=== PATIENT | female | born 1960 | race Caucasian/White ===

== ENCOUNTER 2022-02-20 08:45 | Outpatient (CLI) | payer BC, SELFPAY ==
--- NOTE | 2022-02-20 09:02 | US_ITS ---
WS: [id number] RIGHT UPPER QUADRANT ULTRASOUND HISTORY: ELEVATED LIVER ENZYMES COMPARISON: None available. Liver: 17.4 cm in length. Liver is top normal size to slightly enlarged. Mild central bile duct dilat ation. Common bile duct is markedly dilated to the pancreatic head. Hepatic cyst along the diaphragma tic surface measures 1.4 x 1.5 x 0.7 cm. Portal Vein: Normal hepatopetal flow with monophasic waveform. Gallbladder: Gallbladder hydrops. Sludge layering in the gallbladder. The gallbladder wall is not thi ckened. No stones or pericholecystic fluid. CBD: 1.7 cm Pancreas: Common bile duct is dilated through the pancreatic head. Pancreas otherwise appears normal caliber. Right kidney: 9.8 cm in length. Normal size and echogenicity. No hydronephrosis or mass. Aorta and IVC: Unremarkable abdominal aorta and IVC. No ascites. US/US abdomen limited [id number] IMPRESSION: 1. Moderate intrahepatic biliary duct dilatation and common duct dilatation. C ommon bile duct is dilated through the pancreatic head, 1.7 cm. No obstructing stone or pancreatic mass identified. 2. Gallbladder hydrops. No wall thickening or pericholecystic fluid. There is sludge within the gallbladder lumen. 3. Recommend further evaluation to exclude distal common bile duct stone or ma ss. CT evaluation with IV contrast recommended. No oral contrast. MRCP may be n ecessary.
== END 2022-02-20 08:46 | disposition home or self-care (01) ==
LOC: RAD 08:49
PROVIDERS: Visit Provider Nurse Practitioner
DX: R74.8 Abnormal levels of other serum enzymes (principal); R60.9 Edema, unspecified
CPT/HCPCS: 76705

== ENCOUNTER 2022-02-20 10:26 | Inpatient (IN) | payer BC, SELFPAY ==
[2022-02-20] VITALS (12 sets, daily range): BP systolic 104–157; BP diastolic 80–97; PULSE 79–94; RESP 16–18; TEMP 37.4; O2SAT 95–97; BMI 25.7
--- NOTE | 2022-02-20 12:08 | ED_ITS ---
Documented by User: Jose Knapp DO 02/24/22 07:58 HPI - General Adult General: Chief complaint: General Medical Stated complaint: sent to ER per Taylor Begum/Jaundice Time Seen by Provider: 02/20/22 11:43 Source: patient Mode of arrival: ambulatory Limitations: no limitations History of Present Illness: Onset (ago): minute(s) PFSH ED PFSH: Medical History No significant past medical history Surgical History S/P tonsillectomy Family History Other Cancer Social History Smoking and tobacco status: current every day smoker cigarettes Packs smoked per day: 0.5 Years cigarettes smoked: 30 Alcohol intake: never Substance/Drug Use: never Caregiver/support person: Yes Lives independently: Yes Household members: spouse Housing: House Marital status: Physical Exam Neuro: TYLER COMA SCALE: document GCS findings [place] coma scale total score: 15 Course Vital Signs: Vital signs: Vital Signs Temperature 98.2 F 02/23/22 17:14 Pulse Rate 56 L 02/23/22 17:14 Respiratory Rate 13 02/23/22 17:14 Blood Pressure 137/65 02/23/22 17:14 Pulse Oximetry 93 02/23/22 17:14 MDM - General Adult Medical Decision Making 61-year-old female originally seen by Dr. Knapp and checked out to me. This lady has painless jaundice. Her platelet count is normal. White blood cell co unt is normal as well. Her hemoglobin is 15. Total bilirubin is 7.4 with direct of 5.7. CT and MRCP show an ill-defined pancreatic mass, causing biliary outlet obstruction. Likely the cause of her hyperbilirubinemia. No availability for ERCP or stent here at this facility. I have spoken with GI services [facility], and they have agreed to see the patient. Awaiting hospitalist serv ice as well. She may not have a bed tonight, and may therefore have to wait till tomorrow. Reassumed care from Dr. Zavala. We are still awaiting placement at [place] she has been accepted to have no room available they are not sure when they will have a room available may be in a couple more days discussed the hospitalist will admit to observation here with the plan to transfer as soon as room becomes available. Orders written Dr. Watkins will see the patient Lab Data : 02/22/22 04:10 02/23/22 02:50 Radiology Impressions Abdomen/Pelvis CT 02/20/22 16:15 IMPRESSION: 1. Marked dilatation of intrahepatic/extrahepatic bile duct and main pancreatic duct consistent with double duct sign with suspected obstruction at the level of the pancreatic head/uncinate process due to an ill-defined pancreatic neoplasm as described above. Surgical/GI consultation should be considered. Additional imaging such as contrast-enhanced MRI/MRCP or ERCP/EUS should be considered. 2. No hepatic cirrhosis. Multiple small hypodense hepatic lesions are noted demonstrating probable cystic characteristics. 3. No enlarged regional adenopathy or obvious vascular occlusion/thrombosis. ADDENDUM: 02/20/22 [id number] Impression: 4. Esophageal abnormalities as described. Cholangiopancreatography MRI 02/20/22 16:17 IMPRESSION: 1. Comparison CT same day earlier. The current MRI exam was somewhat limited for pancreatic and hepatic parenchymal enhancement due to lack of contrast. 2. Redemonstration of severe intrahepatic/extrahepatic bile duct dilatation and main pancreatic duct dilatation with obstruction at the level pancreatic head, likely due to an ill-defined mass seen on recent CT exam. The mass is difficult to outline on the current exam due to lack of IV contrast. No intraductal calculi, ductal stricture or ductal wall thickening. 3. No hepatic cirrhosis. Several T2 hyperintense hepatic lesions are probably cystic. 4. Abnormal esophagus as described above. Laboratory Results WBC 7.7 10^3/uL (4.0-10.0) 02/21/22 16:35 RBC 4.82 10^6/uL (4.1-5.3) 02/21/22 16:35 Hgb 13.2 g/dL (11.5-15.3) 02/21/22 16:35 Hct 40.0 % (37.0-47.0) 02/21/22 16:35 MCV 83.0 fl (81-99) 02/21/22 16:35 MCH 27.4 pg (28.0-34.0) L 02/21/22 16:35 MCHC 33.0 g/dL (30.0-36.0) 02/21/22 16:35 RDW 19.2 % (12.1-15.1) H 02/21/22 16:35 Plt Count 151 10^3/cmm (130-400) 02/21/22 16:35 MPV 11.4 fL (7.4-10.4) H 02/21/22 16:35 Neut % (Auto) 69.8 % 02/21/22 16:35 Lymph % (Auto) 17.0 % 02/21/22 16:35 [place] % (Auto) 9.4 % 02/21/22 16:35 Eos % (Auto) 2.6 % 02/21/22 16:35 Baso % (Auto) 0.9 % 02/21/22 16:35 Neut # (Auto) 5.38 10^3/uL (1.8-7.7) 02/21/22 16:35 Lymph # (Auto) 1.3 10^3/uL (0.8-4.8) 02/21/22 16:35 [place] # (Auto) 0.7 10^3/uL (0.2-0.9) 02/21/22 16:35 Eos # (Auto) 0.2 10^3/uL (0.0-0.8) 02/21/22 16:35 Baso # (Auto) 0.1 10^3/uL (0.0-0.1) 02/21/22 16:35 Nucleated RBC % (auto) 0 % 02/21/22 16:35 Nucleated RBCs # 0.0 /100WBC 02/21/22 16:35 PT 14.10 SECONDS (12.1-14.9) 02/21/22 16:35 INR 1.06 (0.8-1.2) 02/21/22 16:35 Sodium 134 mmol/L (136-145) L 02/21/22 16:35 Potassium 3.5 mmol/L (3.5-5.1) 02/21/22 16:35 Chloride 104 mmol/L (98-107) 02/21/22 16:35 Carbon Dioxide 23 mmol/L (22-29) 02/21/22 16:35 Anion Gap 10.5 (5-19) 02/21/22 16:35 BUN 6 mg/dL (8-23) L 02/21/22 16:35 Creatinine 0.4 mg/dL (0.5-0.9) L 02/21/22 16:35 GFR Calculation 161.7 mL/min (90-130) H 02/21/22 16:35 Glucose 104 mg/dL (65-115) 02/21/22 16:35 Calculated Osmolality 276 mOsm/kg (285-295) L 02/21/22 16:35 Calcium 8.8 mg/dL (8.5-10.5) 02/21/22 16:35 Iron 125 ug/dL (37-145) 02/21/22 16:35 TIBC 276 mcg/dl 02/21/22 16:35 % Saturation 45.2 % (20-50) 02/21/22 16:35 Unsat Iron Binding 151 ug/dL (112-347) 02/21/22 16:35 Total Bilirubin 7.3 mg/dL (0.15-1.2) H* 02/21/22 16:35 Direct Bilirubin 5.70 mg/dL (0.00-0.30) H 02/20/22 12:20 Indirect Bilirubin 1.70 02/20/22 12:20 GGT 474 U/L (5-36) H 02/20/22 12:20 AST 129 U/L (0-32) H 02/21/22 16:35 ALT 276 U/L (0-33) H 02/21/22 16:35 Alkaline Phosphatase 323 IU/L (35-105) H 02/21/22 16:35 Lactate Dehydrogenase 194 U/L (135-214) 02/20/22 12:20 Total Protein 5.9 g/dL (6.6-8.7) L 02/21/22 16:35 Albumin 3.3 g/dL (3.5-5.2) L 02/21/22 16:35 Globulin 2.6 g/dL (1.3-4.6) 02/21/22 16:35 Lipase 230 U/L (13-60) H 02/20/22 12:20 TSH 1.37 uIU/mL (0.27-4.20) 02/21/22 16:35 Urine Color Raya (Yellow) 02/20/22 12:20 Urine Appearance Clear (CLEAR) 02/20/22 12:20 Urine pH 5 (5-7) 02/20/22 12:20 Ur Specific [place] 1.025 (1.005-1.030) 02/20/22 12:20 Urine Protein 1+ (Negative) H 02/20/22 12:20 Urine Glucose (UA) Norm (Normal) 02/20/22 12:20 Urine Ketones 1+ (Negative) H 02/20/22 12:20 Urine Blood 3+ (Negative) H 02/20/22 12:20 Urine Nitrate Positive (Negative) H 02/20/22 12:20 Urine Bilirubin 3+ (Negative) H 02/20/22 12:20 Urine Urobilinogen 8 mg/dL (Negative) H 02/20/22 12:20 Ur Leukocyte Esterase 1+ (Negative) H 02/20/22 12:20 Urine RBC 0-4 /hpf (0-2) H 02/20/22 12:20 Urine WBC 5-10 /hpf (0-5) H 02/20/22 12:20 Ur Squamous Epith Cells 0-4 /hpf (0-5) H 02/20/22 12:20 Calcium Oxalate Crystal 0-4 /hpf H 02/20/22 12:20 Amorphous Sediment 1+ /hpf 02/20/22 12:20 Urine Bacteria Trace /hpf (NONE) 02/20/22 12:20 Urine Mucus 3+ /hpf 02/20/22 12:20 Hepatitis A IgM Ab TNP 02/20/22 16:31 Hep Bs Antigen Non-reactive (Nonreactive) 02/20/22 16:31 Hep B Core IgM Ab Non-reactive (Nonreactive) 02/20/22 16:31 Hepatitis C Antibody Non-reactive (Nonreactive) 02/20/22 16:31 Discharge Plan Discharge Patient Disposition: Xfer Short-Term Hosp Clinical Impression: Mass of pancreas, Biliary obstruction Condition: Stable Discharge Orders: Discharge Order (Routine); Ordered 02/23/22 Ordered By: Jose Guallpa Discharge Diet: Regular Discharge Activity: Resume usual activity Coding Level of Care Code ED Accident Examiner for Chg Fwd Exam Comprehensive Documented by User: Chong Zavala DO 02/21/22 19:57 HPI - General Adult General: Chief complaint: General Medical Stated complaint: sent to ER per Taylor Begum/Jaundice Time Seen by Provider: 02/20/22 11:43 History of Present Illness: 61-year-old female presenting to the emergency department for jaundice. This is a painless jaundice that the patient had developed. She saw her primary care physician, labs were obtained, and an outpatient ultrasound. She was sent to the emergency room by her PCP. She continues to complain of no pain. She denies fever. She states she has had intermittent nausea. No known history of cirrhosis or liver disease. She has not had a cholecystectomy. Location: abdomen Quality: other Pain Consistency: other Relieving factors: none Exacerbating factors: none Associated symptoms: Reports malaise and nausea; Deny chest pain, confusion, cough, fevers/chills, headache(s), rash, short of breath or vomiting Review of Systems Const: Reports: malaise; Denies: fever(s) Eyes: Denies: change in vision ENMT: Denies: throat pain Card: Denies: chest pain GI: Reports: nausea; Denies: vomiting Skin/Breast: Denies: rash Neuro: Denies: headache(s) or confusion PFSH ED PFSH: Medical History No significant past medical history Surgical History S/P tonsillectomy Family History Other Cancer Social History Smoking and tobacco status: current every day smoker cigarettes Packs smoked per day: 0.5 Years cigarettes smoked: 30 Alcohol intake: never Substance/Drug Use: never Caregiver/support person: Yes Lives independently: Yes Household members: spouse Housing: House Marital status: Physical Exam Const: GENERAL APPEARANCE: cooperative and ill appearing (mildly) HENMT: COMMON NORMALS: normocephalic and Normal external nose present HEAD & SCALP: normocephalic FACE & SINUS: normal facial exam; no ecchymosis NOSE: Normal external nose present THROAT: posterior oropharynx normal Eye: COMMON NORMALS: Equal, round and reactive pupils present and EOMs intact bilaterally PUPIL: Yes Equal, round and reactive pupils present Neck/C-Spine: GENERAL: Yes trachea midline Chest: COMMONS NORMALS: normal inspection of the chest Resp: COMMON NORMALS: normal respiratory effort and No use of accessory muscles Cardio: COMMON NORMALS: regular rate and regular rhythm RATE: regular rate RHYTHM: regular rhythm GI: COMMON NORMALS: Normal to inspection, nondistended, normoactive bowel sounds present Neuro: TYLER COMA SCALE: document GCS findings [place] coma scale eye opening: Spontaneous [place] coma scale verbal response: Orientated [place] coma scale motor response: Obey commands [place] coma scale total score: 15 Psych: COMMON NORMALS: cooperative Skin: GENERAL SKIN EXAM: jaundice Course Consultations: Consultation #1: KRUNAL huff GI Consultation #2: DARIUS Abreu hospitalist. Vital Signs: Vital signs: Vital Signs Temperature 98.2 F 02/23/22 17:14 Pulse Rate 56 L 02/23/22 17:14 Respiratory Rate 13 02/23/22 17:14 Blood Pressure 137/65 02/23/22 17:14 Pulse Oximetry 93 02/23/22 17:14 [facility] - General Adult Medical Decision Making 61-year-old female originally seen by Dr. Knapp and checked out to me. This lady has painless jaundice. Her platelet count is normal. White blood cell count is normal as well. Her hemoglobin is 15. Total bilirubin is 7.4 with direct of 5.7. CT and MRCP show an ill-defined pancreatic mass, causing biliary outlet obstruction. Likely the cause of her hyperbilirubinemia. No availability for ERCP or stent here at this facility. I have spoken with GI services [facility], and they have agreed to see the patient. Awaiting hospitalist service as well. She may not have a bed tonight, and may therefore have to wait till tomorrow. Lab Data : 02/22/22 04:10 02/23/22 02:50 Radiology Impressions Abdomen/Pelvis CT 02/20/22 16:15 IMPRESSION: 1. Marked dilatation of intrahepatic/extrahepatic bile duct and main pancreatic duct consistent with double duct sign with suspected obstruction at the level of the pancreatic head/uncinate process due to an ill-defined pancreatic neoplasm as described above. Surgical/GI consultation should be considered. Additional imaging such as contrast-enhanced MRI/MRCP or ERCP/EUS should be considered. 2. No hepatic cirrhosis. Multiple small hypodense hepatic lesions are noted demonstrating probable cystic characteristics. 3. No enlarged regional adenopathy or obvious vascular occlusion/thrombosis. ADDENDUM: 02/20/22 [id number] Impression: 4. Esophageal abnormalities as described. Cholangiopancreatography MRI 02/20/22 16:17
[2022-02-20 12:34] LABS: Basophils # 0.1 10^3/uL (0.0-0.1); Basophils % 0.8 %; Eosinophils # 0.1 10^3/uL (0.0-0.8); Eosinophils % 1.2 %; Hematocrit 45.3 % (37.0-47.0); Lymphocytes # 1.2 10^3/uL (0.8-4.8); Lymphocytes % 12.8 %; Mean Corpuscular HGB Conc 33.1 g/dL (30.0-36.0); Mean Corpuscular Hemoglobin 26.8 pg (28.0-34.0); Mean Corpuscular Volume 80.9 fl (81-99); Mean Platelet Volume 11.9 fL (7.4-10.4); Monocytes # 0.8 10^3/uL (0.2-0.9); Monocytes % 8.4 %; Neutrophils # 7.19 10^3/uL (1.8-7.7); Neutrophils % 76.4 %; Nucleated Red Blood Cells % 0 %; Platelet Count 187 10^3/cmm (130-400); Red Cell Distribution Width 18.6 % (12.1-15.1); White Blood Count 9.4 10^3/uL (4.0-10.0)
[2022-02-20 12:53] LABS: Add Urine Culture? No; Add Urine Microscopic? YES; Amorphous Sediment Urine 1+ /hpf; Bacteria Urine TRACE /hpf; Bilirubin Urine 3+ (Negative); Blood Urine 3+ (Negative); Calcium Oxalate Crystals Urine 0-4 /hpf; Glucose Urine UA Norm (Normal); Ketones Urine 1+ (Negative); Leukocyte Esterase Urine 1+ (Negative); Mucus Urine 3+ /hpf; Nitrate Urine Positive (Negative); Protein Urine 1+ (Negative); RBC Urine 0-4 /hpf (0-2); Specific Gravity, Urine 1.025 (1.005-1.030); Squamous Epithelial Cell Urine 0-4 /hpf (0-5); Urine Appearance Clear (CLEAR); Urine Color Amber (Yellow); Urobilinogen Urine 8 mg/dL (Negative); pH Urine 5 (5-7)
[2022-02-20 12:54] LABS: Slide Review Slide Review Perform
[2022-02-20 13:03] LABS: Alanine Aminotransferase 347 U/L (0-33); Albumin Level 4.1 g/dL (3.5-5.2); Alkaline Phosphatase 386 IU/L (35-105); Aspartate Amino Transferase 157 U/L (0-32); Blood Urea Nitrogen 6 mg/dL (8-23); Calcium 9.7 mg/dL (8.5-10.5); Carbon Dioxide 23 mmol/L (22-29); Chloride 102 mmol/L (98-107); Globulin 3.2 g/dL (1.3-4.6); Glomerular Filtration Rate 161.7 mL/min (90-130); Glucose 102 mg/dL (65-115); Lipase 230 U/L (13-60); Osmolality Calculated 286 mOsm/kg (285-295); Sodium 139 mmol/L (136-145); Total Protein 7.3 g/dL (6.6-8.7)
[2022-02-20 13:05] LABS: Gamma Glutamyl Transferase 474 U/L (5-36)
[2022-02-20 13:09] LABS: Total Bilirubin 7.3 mg/dL (0.15-1.2)
[2022-02-20 13:11] LABS: Anion Gap 17.4 (5-19); Lactate Dehydrogenase 194 U/L (135-214); Potassium 3.4 mmol/L (3.5-5.1)
[2022-02-20 13:15] LABS: Total Bilirubin 7.4 mg/dL (0.15-1.2)
[2022-02-20 13:20] LABS: INR 0.97 (0.8-1.2)
--- NOTE | 2022-02-20 16:15 | CTR_ITS ---
PROCEDURE INFORMATION: Exam: CT Abdomen And Pelvis With Contrast Exam date and time: 02/20/2022 5:06 PM Age: 61 years old Clinical indication: Nausea; Additional info: Elevated lfts/hyperbilirubunemia TECHNIQUE: Imaging protocol: Computed tomography of the abdomen and pelvis with contrast. Radiation optimization: All CT scans at this facility use at least one of these dose optimization techniques: automated exposure control; mA and/or kV adjustment per patient size (includes targeted exams where dose is matched to clinical indication); or iterative reconstruction. Contrast material: OMNIPAQUE 300; Contrast volume: 95 ml; Contrast route: INTRAVENOUS (IV); COMPARISON: US abdomen limited [id number] 02/20/2022 9:27 AM RADIATION DOSE METRICS: Total DLP (mGy-cm): 972.3 FINDINGS: Mediastinal space: [id number] esophageal fluid distension, likely related to gastroesophageal reflux. There is also mild esophageal wall thickening suggesting esophagitis. Liver: The liver is otherwise normal in size without cirrhosis. There are multiple small discrete hypodense well-defined lesions, the largest in the inferolateral right hepatic lobe, measuring 14 mm which may represent hepatic cysts however metastatic disease cannot be totally excluded in this setting. Gallbladder and bile ducts: There is diffuse severe intrahepatic and extrahepatic bile duct dilatation with proximal CBD measuring up to 2.6 cm with an abrupt cutoff distally suggesting distal CBD obstruction. There is also marked diffuse main pancreatic duct dilatation measuring up to 14 mm with probable side branch dilatation. There is slight fullness of the pancreatic head/uncinate process with mildly hypodense region measuring about 16 x 15 mm transverse and 18 mm coronal, coronal image 34 and axial image 24 which appears ill-defined during portal venous phase and is somewhat suspicious for obstructive neoplasm. There is distended gallbladder lumen. No imaging signs of acute cholecystitis. There is probable low cystic duct insertion. Pancreas: See Gallbladder and bile ducts finding. Spleen: Normal. No splenomegaly. Adrenal glands: Normal. No mass. Kidneys and ureters: No obstructing calculus. No hydronephrosis. Stomach and bowel: Unremarkable. No obstruction. No mucosal thickening. Appendix: No evidence of appendicitis. Intraperitoneal space: Unremarkable. No free air. No significant fluid collection. Arteries: There is no evidence of regional arterial or venous vascular encasement, thrombosis or obstruction. Lymph nodes: No enlarged lymph nodes. Urinary bladder: Unremarkable as visualized. Reproductive: Unremarkable as visualized. Bones/joints: No acute fracture. Soft tissues: No acute findings. CT/CT abdomen pelvis w con* [id number] IMPRESSION: 1. Marked dilatation of intrahepatic/extrahepatic bile duct and main pancreatic duct consistent with double duct sign with suspected obstruction at the level of the pancreatic head/uncinate process due to an ill-defined pancreatic neoplasm as described above. Surgical/GI consultation should be considered. Additional imaging such as contrast-enhanced MRI/MRCP or ERCP/EUS should be considered. 2. No hepatic cirrhosis. Multiple small hypodense hepatic lesions are noted demonstrating probable cystic characteristics. 3. No enlarged regional adenopathy or obvious vascular occlusion/thrombosis.
--- NOTE | 2022-02-20 16:17 | MRR_ITS ---
PROCEDURE INFORMATION: Exam: MR Abdomen Without Contrast Exam date and time: 02/20/2022 5:48 PM Age: 61 years old Clinical indication: Nausea and vomiting; Additional info: Hyperbilirubinemia, jaundice TECHNIQUE: Imaging protocol: MR of the abdomen without contrast. COMPARISON: CT abdomen pelvis w con* [id number] 02/20/2022 5:06 PM FINDINGS: Mediastinal space: Incidentally noted is fluid-filled dilated distal esophagus. There is probable mild distal esophageal wall thickening which may represent reflux with esophagitis. Liver: Somewhat elongated right hepatic lobe with no significant overall hepatomegaly or cirrhosis. No evidence of hepatic steatosis by chemical shift criteria. Several small T2 hyperintense hepatic lesions are noted, likely hepatic cysts, unchanged versus CT same day, the largest measuring about 13 mm in the right lobe. Gallbladder and bile ducts: Distended gallbladder likely related to obstruction. No obvious gallbladder wall thickening or large gallbladder calculi. No regional edema or inflammatory response. Again seen is marked dilatation of intrahepatic and extrahepatic bile duct and main pancreatic duct as noted on recent CT exam. The proximal CBD measures up to 2.5 cm. No intraductal calculi or obvious ductal wall thickening. No intrahepatic biliary stricture. There is an abrupt cutoff/obstruction at the distal CBD at the lower pancreatic head. Pancreas: Diffuse main pancreatic duct dilatation measuring up to 12-14 mm is again noted with multiple small cystic side branch dilatation. There is also an abrupt cutoff/obstruction at the level of the pancreatic head. Pancreatic parenchymal assessment on the current exam is somewhat limited due to lack of IV contrast however there is a probable ill-defined hypodense lesion on the contrast-enhanced CT exam. Spleen: Unremarkable. No splenomegaly. Adrenal glands: Unremarkable. No mass. Kidneys and ureters: Unremarkable. No solid mass. No hydronephrosis. Stomach and bowel: Visualized stomach and intestines are unremarkable. Intraperitoneal space: No free fluid. Arteries: No abdominal aortic aneurysm. Bones/joints: Unremarkable. Soft tissues: Unremarkable. MR/MR MRCP [id number] IMPRESSION: 1. Comparison CT same day earlier. The current MRI exam was somewhat limited for pancreatic and hepatic parenchymal enhancement due to lack of contrast. 2. Redemonstration of severe intrahepatic/extrahepatic bile duct dilatation and main pancreatic duct dilatation with obstruction at the level pancreatic head, likely due to an ill-defined mass seen on recent CT exam. The mass is difficult to outline on the current exam due to lack of IV contrast. No intraductal calculi, ductal stricture or ductal wall thickening. 3. No hepatic cirrhosis. Several T2 hyperintense hepatic lesions are probably cystic. 4. Abnormal esophagus as described above.
[2022-02-20] MEDS: iohexol 300 mg/mL 100 mL Btl IV (17:11)
[2022-02-20 20:58] LABS: Hepatitis B Core IgM Non-Reactive (Nonreactive); Hepatitis B Surface Antigen Non-Reactive (Nonreactive); Hepatitis C Virus Antibody Non-Reactive (Nonreactive)
[2022-02-20] MEDS: ondansetron 2 mg/ML SDV 2 mL 4 MG IVP (21:29)
[2022-02-20] MEDS: sodium chloride 0.9% 1,000 ML 100 ML IV (21:30)
[2022-02-21] VITALS (15 sets, daily range): BP systolic 93–159; BP diastolic 56–92; PULSE 55–79; RESP 12–18; TEMP 36.6–37.3; O2SAT 94–99
[2022-02-21] MEDS: sodium chloride 0.9% 1,000 ML 100 ML IV (10:06)
[2022-02-21] MEDS: ondansetron 2 mg/ML SDV 2 mL 4 MG IVP ×2 (12:33→17:28)
--- NOTE | 2022-02-21 16:12 | PM.HP ---
Providers/Chief Complaint Primary Care Provider: Taylor Begum NP Chief Complaint: sent to ER per Taylor Begum/Jaundice History of Present Illness Joanna Castañeda is a 61 year old female with no significant past medical history was sent in by her PCP for abdominal ultrasound for nausea, vomiting, light-colored stools, dark-colored urine for last 3 weeks getting worse. On the ultrasound she was found to have a mass so she was sent to the ER. In the ER patient had a CT abdomen pelvis along with an MRCP which was consistent with biliary obstruction secondary to pancreatic head mass. Since then patient has been accepted at [facility] but is awaiting a bed hence medical service was consulted for admit. Patient denies any active complaints currently. Complaining of nausea, yellowish discoloration of eyes and skin. Has lost weight gradually over a period of the ER. Has significant family history of lung cancer in mother. Patient is chronic smoker, not alcoholic. No blood work done today. Blood work available from 02/20. Review of Systems General: Reports: 10 or more systems reviewed and unremarkable except in HPI and below Const: Denies: fever(s), chills, body aches, change in appetite, change in weight, malaise, night sweats, diaphoresis, change in sleep pattern, daytime sleepiness or snoring Eyes: Denies: change in vision, blurry vision, photophobia, eye discomfort or eye discharge ENMT: Denies: throat pain, enlarged tonsils, hoarseness, mouth pain, oral sores, dry mouth, tinnitus, nasal congestion or post nasal drip Card: Denies: chest pain, palpitations, irregular heart rhythm, edema, swelling of feet/ankles, lightheadedness, syncope, pre-syncope, dyspnea on exertion, orthopnea, leg pain with exertion or acrocyanosis Resp: Denies: dyspnea, productive cough, non-productive cough, wheezing, stridor, pain on inspiration, change in phlegm color, hemoptysis or chest congestion GI: Denies: abdominal pain, nausea, vomiting, hematemesis, coffee ground emesis, dysphagia, heartburn, diarrhea, constipation, bloating, GI cramping, change in bowel habits, pain on defecation, hematochezia or melena : Denies: flank pain, dysuria, urinary frequency, urinary urgency, urinary hesitancy, nocturia or hematuria Musc: Denies: neck pain, back pain, extremity pain, joint pain, joint swelling, joint redness, joint stiffness or limited range of motion Neuro: Denies: headache(s), numbness in extremities, weakness in extremities, sensory changes, lack of coordination, difficulty walking, frequent falls, dizziness, vertigo, confusion, Slurred speech present, difficulty communicating thoughts or seizure-like activity Psych: Denies: anxiety, depression, mood swings, panic attacks, hopelessness or irritability Endo: Denies: polyuria, polydipsia, tired all the time, cold intolerance, excessive sweating, flushing or heat intolerance Hilario/Lymph: Denies: easy bruising or easy bleeding All/Imm: Denies: tongue swelling, facial swelling or acute wheezing Medications/Allergies Home Medications Medication Instructions Recorded Confirmed Last Taken Type No Known Home Medications 02/20/22 02/20/22 Unknown History Allergies Allergy/AdvReac Type Severity Reaction Status Date / Time No Known Allergies Allergy Verified 02/20/22 11:13 PFSH Acute PFSH: Medical History (Updated 02/21/22 @ 16:35 by Dallin Watkins MD) No significant past medical history Surgical History (Updated 02/21/22 @ 16:35 by Dallin Watkins MD) S/P tonsillectomy Family History (Updated 02/21/22 @ 16:35 by Dallin Watkins MD) Other Cancer Social History (Updated 02/21/22 @ 16:35 by Dallin Watkins MD) Smoking and tobacco status: current every day smoker cigarettes Packs smoked per day: 0.5 Years cigarettes smoked: 30 Alcohol intake: never Substance/Drug Use: never Caregiver/support person: Yes Lives independently: Yes Household members: spouse Housing: House Marital status: Vitals/I&O/Wt Last Vital Signs Temp 99.3 F 02/20/22 11:07 Pulse 66 02/21/22 14:45 Resp 18 02/21/22 14:45 BP 141/69 02/21/22 14:45 Pulse Ox 96 02/21/22 14:45 02/21/22 02/21/22 02/21/22 06:59 14:59 22:59 Intake Total 1000 / 1000 Balance 1000 / 1000 Weight last 48 hrs Weight 68.039 kg Physical Exam Narrative: General: No acute distress, AO x3, icterus present, pleasant HEENT: PERRLA, pupils bilaterally equal and reactive Chest: Normal vesicular breath sounds, no added sounds, equal good air entry bilaterally CVS: S1-S2 regular, no murmurs, no tachycardia, no gallops, no rubs Abdomen: Soft, mild tenderness in epigastric region, no organomegaly, bowel sounds present Neuro: No focal deficits, no facial deformity, AO x3, power 5/5 in all limbs Data : 02/20/22 12:20 02/20/22 12:20 Other Labs: Radiology Impressions Abdomen/Pelvis CT 02/20/22 16:15 IMPRESSION: 1. Marked dilatation of intrahepatic/extrahepatic bile duct and main pancreatic duct consistent with double duct sign with suspected obstruction at the level of the pancreatic head/uncinate process due to an ill-defined pancreatic neoplasm as described above. Surgical/GI consultation should be considered. Additional imaging such as contrast-enhanced MRI/MRCP or ERCP/EUS should be considered. 2. No hepatic cirrhosis. Multiple small hypodense hepatic lesions are noted demonstrating probable cystic characteristics. 3. No enlarged regional adenopathy or obvious vascular occlusion/thrombosis. ADDENDUM: 02/20/22 1837 Impression: 4. Esophageal abnormalities as described. Cholangiopancreatography MRI 02/20/22 16:17 IMPRESSION: 1[address] CT same day earlier. The current MRI exam was somewhat limited for pancreatic and hepatic parenchymal enhancement due to lack of contrast. 2. Redemonstration of severe intrahepatic/extrahepatic bile duct dilatation and main pancreatic duct dilatation with obstruction at the level pancreatic head, likely due to an ill-defined mass seen on recent CT exam. The mass is difficult to outline on the current exam due to lack of IV contrast. No intraductal calculi, ductal stricture or ductal wall thickening. 3. No hepatic cirrhosis. Several T2 hyperintense hepatic lesions are probably cystic. 4. Abnormal esophagus as described above. Laboratory Results WBC 9.4 10^3/uL (4.0-10.0) 02/20/22 12:20 RBC 5.60 10^6/uL (4.1-5.3) H 02/20/22 12:20 Hgb 15.0 g/dL (11.5-15.3) 02/20/22 12:20 Hct 45.3 % (37.0-47.0) 02/20/22 12:20 MCV 80.9 fl (81-99) L 02/20/22 12:20 MCH 26.8 pg (28.0-34.0) L 02/20/22 12:20 MCHC 33.1 g/dL (30.0-36.0) 02/20/22 12:20 RDW 18.6 % (12.1-15.1) H 02/20/22 12:20 Plt Count 187 10^3/cmm (130-400) 02/20/22 12:20 MPV 11.9 fL (7.4-10.4) H 02/20/22 12:20 Neut % (Auto) 76.4 % 02/20/22 12:20 Lymph % (Auto) 12.8 % 02/20/22 12:20 [place] % (Auto) 8.4 % 02/20/22 12:20 Eos % (Auto) 1.2 % 02/20/22 12:20 Baso % (Auto) 0.8 % 02/20/22 12:20 Neut # (Auto) 7.19 10^3/uL (1.8-7.7) 02/20/22 12:20 Lymph # (Auto) 1.2 10^3/uL (0.8-4.8) 02/20/22 12:20 [place] # (Auto) 0.8 10^3/uL (0.2-0.9) 02/20/22 12:20 Eos # (Auto) 0.1 10^3/uL (0.0-0.8) 02/20/22 12:20 Baso # (Auto) 0.1 10^3/uL (0.0-0.1) 02/20/22 12:20 Nucleated RBC % (auto) 0 % 02/20/22 12:20 Nucleated RBCs # 0.0 /100WBC 02/20/22 12:20 PT 13.20 SECONDS (12.1-14.9) 02/20/22 12:20 INR 0.97 (0.8-1.2) 02/20/22 12:20 Sodium 139 mmol/L (136-145) 02/20/22 12:20 Potassium 3.4 mmol/L (3.5-5.1) L 02/20/22 12:20 Chloride 102 mmol/L (98-107) 02/20/22 12:20 Carbon Dioxide 23 mmol/L (22-29) 02/20/22 12:20 Anion Gap 17.4 (5-19) 02/20/22 12:20 BUN 6 mg/dL (8-23) L 02/20/22 12:20 Creatinine 0.4 mg/dL (0.5-0.9) L 02/20/22 12:20 GFR Calculation 161.7 mL/min (90-130) H 02/20/22 12:20 Glucose 102 mg/dL (65-115) 02/20/22 12:20 Calculated Osmolality 286 mOsm/kg (285-295) 02/20/22 12:20 Calcium 9.7 mg/dL (8.5-10.5) 02/20/22 12:20 Total Bilirubin 7.3 mg/dL (0.15-1.2) H* 02/20/22 12:20 Total Bilirubin 7.4 mg/dL (0.15-1.2) H* 02/20/22 12:20 Direct Bilirubin 5.70 mg/dL (0.00-0.30) H 02/20/22 12:20 Indirect Bilirubin 1.70 02/20/22 12:20 GGT 474 U/L (5-36) H 02/20/22 12:20 AST 157 U/L (0-32) H 02/20/22 12:20 ALT 347 U/L (0-33) H 02/20/22 12:20 Alkaline Phosphatase 386 IU/L (35-105) H 02/20/22 12:20 Lactate Dehydrogenase 194 U/L (135-214) 02/20/22 12:20 Total Protein 7.3 g/dL (6.6-8.7) 02/20/22 12:20 Albumin 4.1 g/dL (3.5-5.2) 02/20/22 12:20 Globulin 3.2 g/dL (1.3-4.6) 02/20/22 12:20 Lipase 230 U/L (13-60) H 02/20/22 12:20 Urine Color Raya (Yellow) 02/20/22 12:20 Urine Appearance Clear (CLEAR) 02/20/22 12:20 Urine pH 5 (5-7) 02/20/22 12:20 Ur Specific [place] 1.025 (1.005-1.030) 02/20/22 12:20 Urine Protein 1+ (Negative) H 02/20/22 12:20 Urine Glucose (UA) Norm (Normal) 02/20/22 12:20 Urine Ketones 1+ (Negative) H 02/20/22 12:20 Urine Blood 3+ (Negative) H 02/20/22 12:20 Urine Nitrate Positive (Negative) H 02/20/22 12:20 Urine Bilirubin 3+ (Negative) H 02/20/22 12:20 Urine Urobilinogen 8 mg/dL (Negative) H 02/20/22 12:20 Ur Leukocyte Esterase 1+ (Negative) H 02/20/22 12:20 Urine RBC 0-4 /hpf (0-2) H 02/20/22 12:20 Urine WBC 5-10 /hpf (0-5) H 02/20/22 12:20 Ur Squamous Epith Cells 0-4 /hpf (0-5) H 02/20/22 12:20 Calcium Oxalate Crystal 0-4 /hpf H 02/20/22 12:20 Amorphous Sediment 1+ /hpf 02/20/22 12:20 Urine Bacteria Trace /hpf (NONE) 02/20/22 12:20 Urine Mucus 3+ /hpf 02/20/22 12:20 Hepatitis A IgM Ab TNP 02/20/22 16:31 Hep Bs Antigen Non-reactive (Nonreactive) 02/20/22 16:31 Hep B Core IgM Ab Non-reactive (Nonreactive) 02/20/22 16:31 Hepatitis C Antibody Non-reactive (Nonreactive) 02/20/22 16:31 A&P Assessment and plan (1) Mass of pancreas: Status: Acute (2) Biliary obstruction: Status: Acute (3) Transaminitis: Status: Acute Plan Transaminitis most likely secondary to biliary obstruction from pancreatic mass: Seen on MRCP. Patient needs ERCP, biopsy for further evaluation. [facility] Awaiting bed. Repeat CBC, CMP, INR. Normal saline at 75 cc/h. Zofran as needed, Protonix daily. Monitor CMP daily for now. Medical reconciliation done for hepatotoxic drugs. Regular diet. UTI: Urine analysis positive for nitrite, leuk esterase. Start on ceftriaxone. Urine culture. Full code. Regular diet. Heparin 5000 every 12 for DVT prophylaxis. Protonix for PUD prophylaxis. 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
[2022-02-21 16:53] LABS: Basophils # 0.1 10^3/uL (0.0-0.1); Basophils % 0.9 %; Eosinophils # 0.2 10^3/uL (0.0-0.8); Eosinophils % 2.6 %; Hemoglobin 13.2 g/dL (11.5-15.3); Lymphocytes # 1.3 10^3/uL (0.8-4.8); Mean Corpuscular Hemoglobin 27.4 pg (28.0-34.0); Mean Platelet Volume 11.4 fL (7.4-10.4); Monocytes # 0.7 10^3/uL (0.2-0.9); Monocytes % 9.4 %; Neutrophils # 5.38 10^3/uL (1.8-7.7); Neutrophils % 69.8 %; Nucleated Red Blood Cells % 0 %; Platelet Count 151 10^3/cmm (130-400); Red Blood Count 4.82 10^6/uL (4.1-5.3); Red Cell Distribution Width 19.2 % (12.1-15.1); White Blood Count 7.7 10^3/uL (4.0-10.0)
[2022-02-21] MEDS: sodium chloride 0.9% 1,000 ML 75 ML IV (17:12)
[2022-02-21] MEDS: pantoprazole 40 mg SDV IVP (17:12)
[2022-02-21] MEDS: cefTRIAXone 1,000 MG in sodium chloride 0.9% (plus) 50 ML 100 MG IV (17:13)
[2022-02-21 17:19] LABS: Alanine Aminotransferase 276 U/L (0-33); Albumin Level 3.3 g/dL (3.5-5.2); Alkaline Phosphatase 323 IU/L (35-105); Anion Gap 10.5 (5-19); Aspartate Amino Transferase 129 U/L (0-32); Blood Urea Nitrogen 6 mg/dL (8-23); Calcium 8.8 mg/dL (8.5-10.5); Carbon Dioxide 23 mmol/L (22-29); Chloride 104 mmol/L (98-107); Globulin 2.6 g/dL (1.3-4.6); Glomerular Filtration Rate 161.7 mL/min (90-130); Glucose 104 mg/dL (65-115); Iron 125 ug/dL (37-145); Osmolality Calculated 276 mOsm/kg (285-295); Percent Saturation 45.2 % (20-50); Potassium 3.5 mmol/L (3.5-5.1); Sodium 134 mmol/L (136-145); Thyroid Stimulating Hormone 1.37 uIU/mL (0.27-4.20); Total Iron Binding Capacity 276 mcg/dl; Total Protein 5.9 g/dL (6.6-8.7); Unsaturated Iron Binding 151 ug/dL (112-347)
[2022-02-21 17:23] LABS: INR 1.06 (0.8-1.2)
[2022-02-21 17:29] LABS: Total Bilirubin 7.3 mg/dL (0.15-1.2)
[2022-02-21] MEDS: heparin 5,000 unit/mL INJ 1 mL 5000 UNIT SUBCUT (20:32)
[2022-02-22] VITALS (10 sets, daily range): BP systolic 121–146; BP diastolic 49–83; PULSE 56–75; RESP 16–18; TEMP 36.4–36.8; O2SAT 95–98
[2022-02-22 04:57] LABS: Basophils # 0.1 10^3/uL (0.0-0.1); Basophils % 1.1 %; Eosinophils # 0.2 10^3/uL (0.0-0.8); Eosinophils % 3.5 %; Hematocrit 37.7 % (37.0-47.0); Hemoglobin 12.2 g/dL (11.5-15.3); Lymphocytes # 1.3 10^3/uL (0.8-4.8); Lymphocytes % 19.7 %; Mean Corpuscular HGB Conc 32.4 g/dL (30.0-36.0); Mean Corpuscular Hemoglobin 27.1 pg (28.0-34.0); Mean Corpuscular Volume 83.6 fl (81-99); Monocytes # 0.7 10^3/uL (0.2-0.9); Monocytes % 10.4 %; Neutrophils # 4.32 10^3/uL (1.8-7.7); Neutrophils % 64.7 %; Nucleated Red Blood Cells % 0 %; Platelet Count 130 10^3/cmm (130-400); Red Blood Count 4.51 10^6/uL (4.1-5.3); Red Cell Distribution Width 18.6 % (12.1-15.1); White Blood Count 6.7 10^3/uL (4.0-10.0)
[2022-02-22 05:13] LABS: Albumin Level 2.9 g/dL (3.5-5.2); Alkaline Phosphatase 260 IU/L (35-105); Blood Urea Nitrogen 4 mg/dL (8-23); Calcium 8.2 mg/dL (8.5-10.5); Carbon Dioxide 23 mmol/L (22-29); Chloride 108 mmol/L (98-107); Chol HDL Ratio 4.56 mg/dL (0.0-4.40); Cholesterol 164 mg/dL (0-200); Globulin 1.8 g/dL (1.3-4.6); Glomerular Filtration Rate 225.4 mL/min (90-130); Glucose 91 mg/dL (65-115); HDL Cholesterol 36 mg/dL (60-100); LDL Cholesterol Calculated 98 mg/dL (50-129); Lipase 212 U/L (13-60); Osmolality Calculated 284 mOsm/kg (285-295); Sodium 139 mmol/L (136-145); Total Bilirubin 5.7 mg/dL (0.15-1.2); Total Protein 4.7 g/dL (6.6-8.7); Triglycerides 148 mg/dL (0-150); VLDL Cholestrol Calculation 30 mg/dL (0-30)
[2022-02-22 05:16] LABS: Alanine Aminotransferase 235 U/L (0-33); Anion Gap 11.6 (5-19); Aspartate Amino Transferase 106 U/L (0-32); Potassium 3.6 mmol/L (3.5-5.1)
[2022-02-22 05:26] LABS: Estmated Average Glucose 105; Hemoglobin A1C 5.3 % (4.0-6.0)
[2022-02-22] MEDS: sodium chloride 0.9% 1,000 ML 75 ML IV ×2 (05:26→17:11)
[2022-02-22] MEDS: heparin 5,000 unit/mL INJ 1 mL 5000 UNIT SUBCUT ×2 (09:04→19:48)
--- NOTE | 2022-02-22 10:45 | PC.NURSE ---
Dr. Watkins asked this nurse to call [facility] and check on her bed status, spoke with transfer center at 1044 who states no bed available at this time as they are at capacity, but they will call when there is a bed available for patient.
--- NOTE | 2022-02-22 12:20 | PM.PN ---
Subjective Subjective: Status quo. No acute events. Denies any new complaints. Tolerating oral diet. Denies any abdominal pain. Awaiting bed at [facility]. Vitals/I&O/Wt Last Vital Signs Temp 97.6 F 02/22/22 11:26 Pulse 57 L 02/22/22 11:26 Resp 18 02/22/22 11:26 BP 139/83 02/22/22 11:26 Pulse Ox 96 02/22/22 11:26 02/21/22 02/22/22 02/22/22 22:59 06:59 14:59 Intake Total 830 / 830 917.5 / 1747.5 360 / 360 Balance 830 / 830 917.5 / 1747.5 360 / 360 Weight last 48 hrs Weight 68.447 kg Physical Exam Narrative: General: No acute distress, AO x3, icterus present, pleasant HEENT: PERRLA, pupils bilaterally equal and reactive Chest: Normal vesicular breath sounds, no added sounds, equal good air entry bilaterally CVS: S1-S2 regular, no murmurs, no tachycardia, no gallops, no rubs Abdomen: Soft, mild tenderness in epigastric region, no organomegaly, bowel sounds present Neuro: No focal deficits, no facial deformity, AO x3, power 5/5 in all limbs Data : 02/22/22 04:10 02/22/22 04:10 A&P Assessment and plan (1) Mass of pancreas: Status: Acute (2) Biliary obstruction: Status: Acute (3) Transaminitis: Status: Acute Plan Transaminitis most likely secondary to biliary obstruction from pancreatic mass: Seen on MRCP. Patient needs ERCP, biopsy for further evaluation. [facility] been accepted at [facility]. Awaiting bed. Normal saline at 75 cc/h. Zofran as needed, Protonix daily. Monitor CMP daily for now. Medical reconciliation done for hepatotoxic drugs. Regular diet. UTI: Urine analysis positive for nitrite, leuk esterase. Start on ceftriaxone. Urine culture. Full code. Regular diet. Heparin 5000 every 12 for DVT prophylaxis. Protonix for PUD prophylaxis. Plan for day: Continue with normal saline, regular diet, Protonix. Awaiting bed at [facility]. 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
[2022-02-22] MEDS: cefTRIAXone 1,000 MG in sodium chloride 0.9% (plus) 100 ML 200 MG IV (17:11)
[2022-02-22] MEDS: pantoprazole 40 mg SDV IVP (17:12)
[2022-02-23 03:45] LABS: Alanine Aminotransferase 221 U/L (0-33); Alkaline Phosphatase 298 IU/L (35-105); Anion Gap 12.2 (5-19); Aspartate Amino Transferase 102 U/L (0-32); Blood Urea Nitrogen 3 mg/dL (8-23); Calcium 8.8 mg/dL (8.5-10.5); Carbon Dioxide 25 mmol/L (22-29); Chloride 107 mmol/L (98-107); Globulin 2.3 g/dL (1.3-4.6); Glomerular Filtration Rate 225.4 mL/min (90-130); Glucose 97 mg/dL (65-115); Osmolality Calculated 288 mOsm/kg (285-295); Potassium 3.2 mmol/L (3.5-5.1); Sodium 141 mmol/L (136-145); Total Bilirubin 6.5 mg/dL (0.15-1.2); Total Protein 5.3 g/dL (6.6-8.7)
[2022-02-23 04:00] VITALS: BP 113/67; PULSE 67; RESP 17; TEMP 36.5; O2SAT 97
[2022-02-23 05:26] VITALS: PULSE 48
[2022-02-23 08:00] VITALS: BP 138/68; PULSE 60; RESP 13; TEMP 36.6; O2SAT 96
[2022-02-23] MEDS: heparin 5,000 unit/mL INJ 1 mL 5000 UNIT SUBCUT (08:32)
[2022-02-23 11:10] VITALS: BP 158/88; PULSE 62; RESP 12; TEMP 36.8; O2SAT 91
--- NOTE | 2022-02-23 13:00 | P.DS_ITS ---
Discharge Providers Date of Admission: 02/21/22 16:42 Date of Discharge: February 23, 2022 Attending Provider at Admission: Dallin Watkins MD Attending Provider at Discharge: Jose Guallpa MD Primary Care Provider: Taylor Begum NP Diagnoses at Discharge Discharge Diagnosis (1) Mass of pancreas: Status: Acute (2) Biliary obstruction: Status: Acute (3) Transaminitis: Status: Acute Reason for Visit Reason for Visit: sent to ER per Taylor Begum/Jaundice Hospital Course Hospital Course HPI:Dallin Watkins MD Joanna Castañeda is a 61 year old female with no significant past medical history was sent in by her PCP for abdominal ultrasound for nausea, vomiting, light-colored stools, dark-colored urine for last 3 weeks getting worse.? On the ultrasound she was found to have a mass so she was sent to the ER.? In the ER patient had a CT abdomen pelvis along with an MRCP which was consistent with biliary obstruction secondary to pancreatic head mass.? Since then patient has been accepted at [facility] but is awaiting a bed hence medical service was consulted for admit. Patient denies any active complaints currently.? Complaining of nausea, yellowish discoloration of eyes and skin.? Has lost weight gradually over a period of the ER.? Has significant family history of lung cancer in mother.? Patient is chronic smoker, not alcoholic. Hospital course: She was admitted for the management of pancreatic mass, transaminitis secondary to PUD obstruction secondary to pancreatic mass. During the hospital stay: She underwent CT abdomen and pelvis, abdominal ultrasound as well as MRCP. CMP was monitored, at the time of discharge she denied any nausea vomiting abdominal pain, she was tolerating diet well.initial plan was to transfer her out to [facility], though she was accepted but there was no bed available, given the fact that she was stable, she was discharged, And has been advised to follow GI as an outpatient. She was also managed for UTI, was on IV antibiotics, is being discharged on p.o. levofloxacin. Patient responded well to above medical management and is being discharged in stable condition to home. Physical Exam Const: COMMON NORMALS: patient oriented x3 HENMT: COMMON NORMALS: normocephalic and atraumatic HEAD & SCALP: normocephalic and atraumatic Eye: GENERAL EYE: appearance normal, both eyes and all related structures Chest: COMMONS NORMALS: normal inspection of the chest and normal palpation of entire chest wall CHEST: Yes Symmetrical chest wall rise Resp: COMMON NORMALS: normal respiratory effort, No retractions, No use of accessory muscles and clear to auscultation bilaterally EFFORT & INSPECTION: Yes symmetric chest movement AUSCULTATION: clear to auscultation bilaterally Cardio: COMMON NORMALS: regular rate, regular rhythm, S1 normal heart sound present, S2 normal heart sound present, No gallops present (Cardio), No murmurs present (Cardio), No rub (Cardio) and Peripheral pulses 2+ throughout RATE: regular rate RHYTHM: regular rhythm HEART SOUNDS: S1 normal heart sound present and S2 normal heart sound present PERIPHERAL PULSES: Peripheral pulses 2+ throughout GI: COMMON NORMALS: Normal to inspection, nondistended, normoactive bowel sounds present, Soft to palpation, non-tender, No hepatosplenomegaly present and no masses AUSCULTATION: Yes normoactive bowel sounds PALPATION: Yes Soft to palpation and Yes No hepatosplenomegaly present RECTAL EXAM: deferred Extremity: COMMON NORMALS: no clubbing, cyanosis or edema and no pedal edema Neuro: COMMON NORMALS: patient oriented x3 Discharge Data Studies Completed and Pending Completed Studies During Hospitalization Category Date Time Status CT abdomen pelvis w con* [id number] Stat Cat Scan 02/20/22 16:15 Completed MR MRCP [id number] Stat MRI 02/20/22 16:17 Completed Pending at discharge Category Date Time Status Miscellaneous Test Routine Lab 02/20/22 16:31 Received Radiology Impressions Abdomen/Pelvis CT 02/20/22 16:15 IMPRESSION: 1. Marked dilatation of intrahepatic/extrahepatic bile duct and main pancreatic duct consistent with double duct sign with suspected obstruction at the level of the pancreatic head/uncinate process due to an ill-defined pancreatic neoplasm as described above. Surgical/GI consultation should be considered. Additional imaging such as contrast-enhanced MRI/MRCP or ERCP/EUS should be considered. 2. No hepatic cirrhosis. Multiple small hypodense hepatic lesions are noted demonstrating probable cystic characteristics. 3. No enlarged regional adenopathy or obvious vascular occlusion/thrombosis. ADDENDUM: 02/20/22 6632 Impression: 4. Esophageal abnormalities as described. Cholangiopancreatography MRI 02/20/22 16:17 IMPRESSION: 1[address] CT same day earlier. The current MRI exam was somewhat limited for pancreatic and hepatic parenchymal enhancement due to lack of contrast. 2. Redemonstration of severe intrahepatic/extrahepatic bile duct dilatation and main pancreatic duct dilatation with obstruction at the level pancreatic head, likely due to an ill-defined mass seen on recent CT exam. The mass is difficult to outline on the current exam due to lack of IV contrast. No intraductal calculi, ductal stricture or ductal wall thickening. 3. No hepatic cirrhosis. Several T2 hyperintense hepatic lesions are probably cystic. 4. Abnormal esophagus as described above. Laboratory Results WBC 6.7 10^3/uL (4.0-10.0) 02/22/22 04:10 RBC 4.51 10^6/uL (4.1-5.3) 02/22/22 04:10 Hgb 12.2 g/dL (11.5-15.3) 02/22/22 04:10 Hct 37.7 % (37.0-47.0) 02/22/22 04:10 MCV 83.6 fl (81-99) 02/22/22 04:10 MCH 27.1 pg (28.0-34.0) L 02/22/22 04:10 MCHC 32.4 g/dL (30.0-36.0) 02/22/22 04:10 RDW 18.6 % (12.1-15.1) H 02/22/22 04:10 Plt Count 130 10^3/cmm (130-400) 02/22/22 04:10 MPV Not Reportable 02/22/22 04:10 Neut % (Auto) 64.7 % 02/22/22 04:10 Lymph % (Auto) 19.7 % 02/22/22 04:10 [place] % (Auto) 10.4 % 02/22/22 04:10 Eos % (Auto) 3.5 % 02/22/22 04:10 Baso % (Auto) 1.1 % 02/22/22 04:10 Neut # (Auto) 4.32 10^3/uL (1.8-7.7) 02/22/22 04:10 Lymph # (Auto) 1.3 10^3/uL (0.8-4.8) 02/22/22 04:10 [place] # (Auto) 0.7 10^3/uL (0.2-0.9) 02/22/22 04:10 Eos # (Auto) 0.2 10^3/uL (0.0-0.8) 02/22/22 04:10 Baso # (Auto) 0.1 10^3/uL (0.0-0.1) 02/22/22 04:10 Nucleated RBC % (auto) 0 % 02/22/22 04:10 Nucleated RBCs # 0.0 /100WBC 02/22/22 04:10 PT 14.10 SECONDS (12.1-14.9) 02/21/22 16:35 INR 1.06 (0.8-1.2) 02/21/22 16:35 Sodium 141 mmol/L (136-145) 02/23/22 02:50 Potassium 3.2 mmol/L (3.5-5.1) L 02/23/22 02:50 Chloride 107 mmol/L (98-107) 02/23/22 02:50 Carbon Dioxide 25 mmol/L (22-29) 02/23/22 02:50 Anion Gap 12.2 (5-19) 02/23/22 02:50 BUN 3 mg/dL (8-23) L 02/23/22 02:50 Creatinine 0.3 mg/dL (0.5-0.9) L 02/23/22 02:50 GFR Calculation 225.4 mL/min (90-130) H 02/23/22 02:50 Glucose 97 mg/dL (65-115) 02/23/22 02:50 Estimat Average Glucose 105 02/22/22 04:10 Hemoglobin A1c 5.3 % (4.0-6.0) 02/22/22 04:10 Calculated Osmolality 288 mOsm/kg (285-295) 02/23/22 02:50 Calcium 8.8 mg/dL (8.5-10.5) 02/23/22 02:50 Iron 125 ug/dL (37-145) 02/21/22 16:35 TIBC 276 mcg/dl 02/21/22 16:35 % Saturation 45.2 % (20-50) 02/21/22 16:35 Unsat Iron Binding 151 ug/dL (112-347) 02/21/22 16:35 Total Bilirubin 6.5 mg/dL (0.15-1.2) H 02/23/22 02:50 Direct Bilirubin 5.70 mg/dL (0.00-0.30) H 02/20/22 12:20 Indirect Bilirubin 1.70 02/20/22 12:20 GGT 474 U/L (5-36) H 02/20/22 12:20 AST 102 U/L (0-32) H 02/23/22 02:50 ALT 221 U/L (0-33) H 02/23/22 02:50 Alkaline Phosphatase 298 IU/L (35-105) H 02/23/22 02:50 Lactate Dehydrogenase 194 U/L (135-214) 02/20/22 12:20 Total Protein 5.3 g/dL (6.6-8.7) L 02/23/22 02:50 Albumin 3.0 g/dL (3.5-5.2) L 02/23/22 02:50 Globulin 2.3 g/dL (1.3-4.6) 02/23/22 02:50 Triglycerides 148 mg/dL (0-150) 02/22/22 04:10 Cholesterol 164 mg/dL (0-200) 02/22/22 04:10 LDL Cholesterol, Calc 98 mg/dL (50-129) 02/22/22 04:10 Total VLDL Cholesterol 30 mg/dL (0-30) 02/22/22 04:10 HDL Cholesterol 36 mg/dL (60-100) L 02/22/22 04:10 Cholesterol/HDL Ratio 4.56 mg/dL (0.0-4.40) H 02/22/22 04:10 Lipase 212 U/L (13-60) H 02/22/22 04:10 TSH 1.37 uIU/mL (0.27-4.20) 02/21/22 16:35 Urine Color Raya (Yellow) 02/20/22 12:20 Urine Appearance Clear (CLEAR) 02/20/22 12:20 Urine pH 5 (5-7) 02/20/22 12:20 Ur Specific [place] 1.025 (1.005-1.030) 02/20/22 12:20 Urine Protein 1+ (Negative) H 02/20/22 12:20 Urine Glucose (UA) Norm (Normal) 02/20/22 12:20 Urine Ketones 1+ (Negative) H 02/20/22 12:20 Urine Blood 3+ (Negative) H 02/20/22 12:20 Urine Nitrate Positive (Negative) H 02/20/22 12:20 Urine Bilirubin 3+ (Negative) H 02/20/22 12:20 Urine Urobilinogen 8 mg/dL (Negative) H 02/20/22 12:20 Ur Leukocyte Esterase 1+ (Negative) H 02/20/22 12:20 Urine RBC 0-4 /hpf (0-2) H 02/20/22 12:20 Urine WBC 5-10 /hpf (0-5) H 02/20/22 12:20 Ur Squamous Epith Cells 0-4 /hpf (0-5) H 02/20/22 12:20 Calcium Oxalate Crystal 0-4 /hpf H 02/20/22 12:20 Amorphous Sediment 1+ /hpf 02/20/22 12:20 Urine Bacteria Trace /hpf (NONE) 02/20/22 12:20 Urine Mucus 3+ /hpf 02/20/22 12:20 Hepatitis A IgM Ab TNP 02/20/22 16:31 Hep Bs Antigen Non-reactive (Nonreactive) 02/20/22 16:31 Hep B Core IgM Ab Non-reactive (Nonreactive) 02/20/22 16:31 Hepatitis C Antibody Non-reactive (Nonreactive) 02/20/22 16:31 Vitals Last Vital Signs Temp 98.2 F 02/23/22 11:10 Pulse 62 02/23/22 11:10 Resp 12 02/23/22 11:10 BP 158/88 02/23/22 11:10 Pulse Ox 91 02/23/22 11:10 Discharge Plan Discharge Patient Disposition: Home Condition: Stable Prescriptions: New levofloxacin 500 mg tablet 500 mg PO DAILY 5 Days Qty: 5 0RF Pain Relief (acetaminophen) 500 mg tablet 500 mg PO Q6H PRN (Reason: pain) Qty: 20 0RF Discharge Orders: Discharge Order (Routine); Ordered 02/23/22 Ordered By: Jose Guallpa Referrals: [facility] Brothel Keeper [Other] ([facility] or Iesha Kirkland will be calling you with an appointment. As discussed should you start having severe symptoms please present to closest Emergency Department. Please feel free to check on referral by calling this number option 1 after 48 hours. ) Taylor Begum NP [Primary Care Provider] - 03/03/22 9:45 am Discharge Diet: Regular Discharge Activity: Resume usual activity Patient Instructions: Levofloxacin (By mouth), Urinary Tract Infection in Women (GEN), Opioid Safety Discharge Attestations Time Spent in Discharge Care*: less than 30 min Quality Metrics Clinical Quality Measures [ No reported AMI, CVA or VTE this stay] Coding Level of Care Code Acute Chg FW DC note Exam Comprehensive Diagnoses Mass of pancreas K86.89 Biliary obstruction K83.1 Transaminitis R74.01
[2022-02-23 16:00] VITALS: BP 137/65; PULSE 56; RESP 13; TEMP 36.8; O2SAT 93
--- NOTE | 2022-02-23 16:08 | PC.SOCIAL ---
Addendum entered by Iesha Kirkland RN 02/23/22 16:13: [facility] phone: [phone] option 1 for referrals. Original Note: Discussed care with patient. She wants to be discharged to home for now. She is agreeable to referral for [facility]. This is her preference along with at bedside. Updated both of them that this nurse has contacted them about referral and will send information since they are agreeable to request an urgent appt to be made and recommendations for ERCP and biopsy of pancreatic mass are including in documentation. Per clnic once records received will take up to 48 hours for review and provider give opinion on urgency of appt. Appt will be scheduled at that time. Asked clinic to give this nurse appointment date and time. This nurse will update patient so that we can verify follow up has been completed. Patient understands should she experience severe symptoms she will need to report to nearest Emergency Dept. Pt is agreeable. Added contact information to the [facility] to dc plan and asked Vonnie to print off updated information to give to patient or have Yare[facility] charge nurse do so. Vonnie agrees to do so. Will update patient once information is known.
[2022-02-23 17:14] VITALS: BP 137/65; PULSE 56; RESP 13; TEMP 36.8; O2SAT 93
--- NOTE | 2022-03-02 08:37 | PC.SOCIAL ---
Addendum entered by Iesha Kirkland RN 03/02/22 08:42: Was able to reach patient and she wants the referral to [facility] to be cancelled. Notified [facility]. She has gone to [facility] and has had 2 surgeries. She is currently receiving the care needed. She was upset per her report that ED and Attending provider told her that [facility] do not do the surgeries needed. She has verified that both do and she feels communication was not appropriate. At this time she is receiving the needed care at [facility]. Original Note: Followed up with [facility] and they are working on getting her scheduled for procedure to have biliary stent placed and they will call her. Reached out to patient.
== END 2022-02-23 16:55 | disposition home or self-care (01) | DRG 438 ==
LOC: ER 02-21 15:30 → MEDSURG 02-21 19:57
PROVIDERS: Emergency Medicine; Physician Assistant; Admitting Provider Student in an Organized Health Care Education/Training Program; Emergency Provider Family Medicine; PCP Nurse Practitioner; Visit Provider Internal Medicine
DX: K86.89 Other specified diseases of pancreas (principal); K83.1 Obstruction of bile duct; N39.0 Urinary tract infection, site not specified; R74.01 Elevation of levels of liver transaminase levels; F17.210 Nicotine dependence, cigarettes, uncomplicated; Z80.1 Family history of malignant neoplasm of trachea, bronchus and lung
CPT/HCPCS: 36415; 74177; 74181; 80053; 80061; 80074; 81001; 82247; 82248; 82977; 83036; 83540; 83550; 83615; 83690; 84443; 85025; 85610; 87086; 94664; 96372; 99285; C9113; J0696; J1644; J2405; J7030; Q9967